=== PATIENT | female | born 1950 | race Caucasian/White ===

== ENCOUNTER 2022-11-09 09:56 | Outpatient (CLI) | payer MEDICARE, OTHER, SELFPAY | END 2022-11-09 09:57 | disposition home or self-care (01) | PROVIDERS: Visit Provider Urology | DX: N20.0 Calculus of kidney (principal) | CPT/HCPCS: 87086 ==

== ENCOUNTER 2023-07-24 11:48 | Outpatient (CLI) | payer MEDICARE, OTHER, SELFPAY ==
[2023-07-24 12:26] LABS: Basophils Percent Auto 0.3 % (0.2-1.2); Eosinophils Absolute Auto 0.1 K/mm3 (0-0.3); Eosinophils Percent Auto 1.3 % (0-4.4); Immature Granulocyte Percent A 1.6 % (0-0.5); Immature Platelet Fraction Pct 23.5 % (0.9-11.2); Lymphocytes Absolute Auto 1.43 K/mm3 (0.9-3.2); Lymphocytes Percent Auto 22.8 % (18.3-44.2); Mean Corpuscular Hemoglobin 28.9 pg (26-34); Mean Corpuscular Volume 96.4 fl (80-100); Mean Platelet Volume 13.8 fl (7.4-10.4); Monocytes Absolute Auto 1.1 K/mm3 (0.1-0.6); Monocytes Percent Auto 16.7 % (2.6-8.5); Neutrophils Absolute Auto 3.6 K/mm3 (1.3-6.7); Neutrophils Percent Auto 57.3 % (45.5-73.1); Platelet Count Result 165 k/mm3 (150-375); Red Blood Count 1.97 M/mm3 (4.2-5.4); Red Cell Distribution Width 17.7 % (11.5-14.5); White Blood Count 6.3 K/mm3 (4.5-10.0)
[2023-07-24 12:29] LABS: Hemoglobin 5.7 g/dL (12.0-15.0)
[2023-07-24 12:38] LABS: Alanine Aminotransferase 37 U/L (6-35); Albumin Level 3.9 g/dL (3.5-5.1); Alkaline Phosphatase 117 U/L (38-126); Anion Gap 7 mmol/L (8-16); Aspartate Amino Transferase 35 U/L (14-36); Bilirubin,Total 0.5 mg/dL (0.2-1.3); Blood Urea Nitrogen 28 mg/dL (7-17); Calcium 9.5 mg/dL (8.4-10.2); Carbon Dioxide 28 mmol/L (22-30); Chloride 107 mmol/L (98-107); Estimated Glomerular Filt Rate 49; Glucose 151 mg/dL (65-110); Potassium 4.2 mmol/L (3.4-5.0); Sodium 142 mmol/L (137-145)
[2023-07-24 12:44] LABS: Anisocytosis 1+ (NORMAL); Hypochromasia 2+ (NORMAL); Ovalocytes 1+ (NORMAL); Platelet Estimate Adequate (Adequate); Schistocytes None Seen (NORMAL)
[2023-07-24 12:45] LABS: Iron 208 ug/dL (37-170)
[2023-07-24 16:25] LABS: Ferritin > 2000.00 ng/mL (11.1-264)
== END 2023-07-24 11:49 | disposition home or self-care (01) ==
DX: D64.9 Anemia, unspecified (principal); D75.81 Myelofibrosis
CPT/HCPCS: 36415; 80053; 82728; 83540; 85025; 85055

== ENCOUNTER 2023-11-28 13:51 | Outpatient (CLI) | payer MEDICARE, OTHER, SELFPAY ==
[2023-11-28 15:07] LABS: Hematocrit 22.5 % (37.0-47.0); Hemoglobin 7.1 g/dL (12.0-15.0); Immature Platelet Fraction Pct 50.1 % (0.9-11.2); Mean Corpuscular HGB Conc 31.6 g/dl (32-36); Mean Corpuscular Hemoglobin 28.9 pg (26-34); Mean Corpuscular Volume 91.5 fl (80-100); Platelet Count Result 103 k/mm3 (150-375); Red Blood Count 2.46 M/mm3 (4.2-5.4); Red Cell Distribution Width 16.2 % (11.5-14.5); White Blood Count 6.9 K/mm3 (4.5-10.0)
[2023-11-28 15:19] LABS: Alanine Aminotransferase 69 U/L (6-35); Albumin Level 3.9 g/dL (3.5-5.1); Alkaline Phosphatase 101 U/L (38-126); Anion Gap 6 mmol/L (4-12); Aspartate Amino Transferase 44 U/L (14-36); Bilirubin,Total 0.6 mg/dL (0.2-1.3); Blood Urea Nitrogen 33 mg/dL (7-17); Calcium 10.3 mg/dL (8.4-10.2); Carbon Dioxide 31 mmol/L (22-30); Chloride 92 mmol/L (98-107); Estimated Glomerular Filt Rate 24; Glucose 183 mg/dL (65-110); Potassium 4.2 mmol/L (3.4-5.0); Sodium 129 mmol/L (137-145)
== END 2023-11-28 13:52 | disposition home or self-care (01) ==
DX: M97.12XD Periprosthetic fracture around internal prosthetic left knee joint, subsequent encounter (principal)
CPT/HCPCS: 36415; 80053; 85027; 85055

== ENCOUNTER 2023-12-24 12:52 | Emergency (ER) | payer MEDICARE, OTHER, SELFPAY ==
[2023-12-24] VITALS (8 sets, daily range): BP systolic 102–163; BP diastolic 59–92; PULSE 81–87; RESP 12–23; TEMP 36.8; O2SAT 98–100
--- NOTE | ~2023-12-24 | CT_ITS ---
EXAMINATION: CT abdomen pelvis w con DATE: 12/24/2023 13:40 INDICATION: Abdominal pain. Constipation. TECHNIQUE: Computed tomography (CT) of the abdomen and pelvis was performed with 100 mL Omnipaque 350 intravenous contrast. Automated exposure control and iterative reconstruction technique were employe d. The dose-length product was 904.13 mGy-cm. COMPARISON: None. FINDINGS: The visualized portions of lung bases demonstrate mild atelectasis. No pleural effusion. Th e heart size is normal. No pericardial effusion. There are cysts in the liver measuring up to 4 mm. T here is mild elevation right hemidiaphragm. The gallbladder is normal. The spleen is small and calcif ied. The pancreas and adrenal glands are normal. There is cortical thinning of the kidneys. There is a 12 mm mass in left kidney measuring soft tissue attenuation. There is a 10 mm cyst in left kidney. There are 6 stones in right kidney measuring up to 7 mm. There are greater than 10 stones in left kid jorge measuring up to 6 mm. Stool distends the rectum. There are no dilated loops of bowel. The appendi x is normal. There are no pathologically enlarged lymph nodes. There is no free intraperitoneal fluid . There is severe osteoarthritis of the hips. There is lumbar dextroscoliosis and severe spondylosis. There is severe thoracic spondylosis. IMPRESSION: 1. Stool distends the rectum. 2. 12 mm left kidney mass which may be a hemorrhagic cyst or less likely a neoplasm. Consider abdomen MRI without and with contrast. Reviewed, dictated and finalized at location A. IMPRESSION: 1. Stool distends the rectum. 2. 12 mm left kidney mass which may be a hemorrhagic cyst or less likely a neop lasm. Consider abdomen MRI without and with contrast.
--- NOTE | 2023-12-24 13:25 | ED.ABDPAIN ---
HPI - Abdominal Pain General Chief Complaint: Abdominal Pain Stated Complaint: constipated Time Seen by Provider: 12/24/23 13:01 History of Present Illness HPI narrative: 73-year-old female present to the emergency department for evaluation of constipation. Patient reports she has not had a bowel movement approximately an 11 days. Patient reports that she did have a femur fracture on October 15. Patient reports that since then she has been intermittently on oxycodone, [place] and tramadol. Patient reports she has not been taking anything to help with her constipation Related Data Allergies Allergy/AdvReac Type Severity Reaction Status Date / Time No Known Allergies Allergy Verified 12/24/23 13:11 Review of Systems Review of Systems: All systems reviewed & are unremarkable except as noted in HPI and below Exam Narrative: APPEARANCE: Well appearing, no pain, no distress, well-nourished. HEAD: normocephalic, atraumatic. EYES: PERRLA/EOMI, conjunctivae clear. NOSE: Normal no drainage EARS:TMS clear with good light reflex. THROAT: Pharynx clear, no exudate. NECK: Supple. No adenopathy, no masses. RESPIRATORY: Airway patent, respirations nonlabored. Clear to auscultation bilaterally, no rales, rhonchi, wheezing. CARDIOVASCULAR: Regular rate and rhythm without murmurs rubs or gallops. ABDOMINAL: Soft, nontender, nondistended, normal bowel sounds MUSCULOSKELETAL: Moves all extremities. Strength/ROM intact, No edema, No calf tenderness. NEURO: Alert. Cranial nerves II through XII intact. Grossly intact SKIN: Warm, dry. Normal Color Course Vital Signs Vital signs: Vital Signs Temperature 98.3 F 12/24/23 13:05 Pulse Rate 81 12/24/23 13:05 Respiratory Rate 14 12/24/23 13:05 Blood Pressure 163/65 H 12/24/23 13:05 Pulse Oximetry 100 12/24/23 13:05 Oxygen Delivery Room Air 12/24/23 13:05 Temperature 98.3 F 12/24/23 13:05 Pulse Rate 84 12/24/23 15:32 Respiratory Rate 19 12/24/23 15:32 Blood Pressure 137/92 H 12/24/23 15:31 Pulse Oximetry 100 12/24/23 15:31 Oxygen Delivery Room Air 12/24/23 13:05 MDM - Abdominal Pain MDM Narrative Medical decision making narrative: 73-year-old female presenting to the emergency department for evaluation of constipation. Patient is afebrile with no leukocytosis and hemoglobin of 7.1. This is similar to the patient's baseline. Patient is seen is also similar to baseline. CT abdomen pelvis showed evidence of rectal distention and constipation. Patient was treated with a soapsuds enema and did pass a significant amount of stool. Patient was updated on the results of her workup and patient was encouraged to increase her MiraLax and lateral fiber intake. Patient was also encouraged of close follow-up with her physicians. Differential Diagnosis Differential diagnosis: Likely abdominal pain, acute appendicitis, constipation, diverticulitis, endometriosis, gastroenteritis and small bowel obstruction Lab Data Attestation: I reviewed the patient's lab results. 12/24/23 13:20 12/24/23 13:30 Labs: Lab Results 12/24/23 12/24/23 Range/Units 13:20 13:30 WBC 5.9 (4.5-10.0) K/mm3 RBC 2.52 L (4.2-5.4) M/mm3 Hgb 7.1 L (12.0-15.0) g/dL Hct 22.7 L (37.0-47.0) % MCV 90.1 (80-100) fl MCH 28.2 (26-34) pg MCHC 31.3 L (32-36) g/dl RDW 15.5 H (11.5-14.5) % Plt Count 138 L (150-375) k/mm3 MPV Not Reportable Immature Gran % (Auto) 0.8 H (0-0.5) % Neut % (Auto) 49.9 (45.5-73.1) % Lymph % (Auto) 23.2 (18.3-44.2) % [facility] % (Auto) 25.9 H (2.6-8.5) % Eos % (Auto) 0.0 (0-4.4) % Baso % (Auto) 0.2 (0.2-1.2) % Lymph # (Auto) 1.37 (0.9-3.2) K/mm3 [facility] # (Auto) 1.5 H (0.1-0.6) K/mm3 Eos # (Auto) 0.0 (0-0.3) K/mm3 Baso # (Auto) 0.0 (0.0-0.1) K/mm3 Abs Immat Gran (auto) 0.05 H (0.00-0.031) K/mm3 Absolute Neuts (auto) 2.9 (1.3-6.7) K/mm3 Absolute Nucleated R
[2023-12-24 13:30] LABS: Basophils Percent Auto 0.2 % (0.2-1.2); Hematocrit 22.7 % (37.0-47.0); Hemoglobin 7.1 g/dL (12.0-15.0); Immature Granulocyte Absolute 0.05 K/mm3 (0.00-0.031); Immature Granulocyte Percent A 0.8 % (0-0.5); Immature Platelet Fraction Pct 43.6 % (0.9-11.2); Lymphocytes Absolute Auto 1.37 K/mm3 (0.9-3.2); Lymphocytes Percent Auto 23.2 % (18.3-44.2); Mean Corpuscular HGB Conc 31.3 g/dl (32-36); Mean Corpuscular Hemoglobin 28.2 pg (26-34); Mean Corpuscular Volume 90.1 fl (80-100); Monocytes Absolute Auto 1.5 K/mm3 (0.1-0.6); Monocytes Percent Auto 25.9 % (2.6-8.5); Neutrophils Absolute Auto 2.9 K/mm3 (1.3-6.7); Neutrophils Percent Auto 49.9 % (45.5-73.1); Platelet Count Result 138 k/mm3 (150-375); Red Blood Count 2.52 M/mm3 (4.2-5.4); Red Cell Distribution Width 15.5 % (11.5-14.5); White Blood Count 5.9 K/mm3 (4.5-10.0)
[2023-12-24 13:32] LABS: Estimated CRCL calculation 48 ml/min; Estimated Glomerular Filt Rate 54
[2023-12-24 13:38] LABS: Lactic Acid Reflex 1.3 mmol/L (0.7-2.0)
[2023-12-24 13:39] LABS: Alanine Aminotransferase 55 U/L (6-35); Albumin Level 3.6 g/dL (3.5-5.1); Alkaline Phosphatase 95 U/L (38-126); Anion Gap 4 mmol/L (4-12); Aspartate Amino Transferase 46 U/L (14-36); Bilirubin,Total 0.7 mg/dL (0.2-1.3); Blood Urea Nitrogen 23 mg/dL (7-17); Calcium 10.1 mg/dL (8.4-10.2); Carbon Dioxide 33 mmol/L (22-30); Chloride 97 mmol/L (98-107); Estimated CRCL calculation 53 ml/min; Estimated Glomerular Filt Rate > 60; Glucose 200 mg/dL (65-110); Potassium 4.3 mmol/L (3.4-5.0); Sodium 134 mmol/L (137-145)
[2023-12-24 13:54] LABS: Large Platelets Present; Platelet Estimate Decreased (Adequate)
[2023-12-24 13:55] LABS: Anisocytosis 1+; Giant Platelets Present; Hypochromasia 1+; Schistocytes None Seen; Target Cells 1+
[2023-12-24] MEDS: ACETAMINOPHEN 500 MG TABLET 1000 MG PO (15:39)
--- NOTE | 2023-12-24 15:47 | PC.NURSE ---
attempted to call sister with update. no answer
--- NOTE | 2023-12-24 16:08 | PC.NURSE ---
1607 Attempted to call pts sister, Makayla, no answer and voicemail was left.
== END 2023-12-24 17:07 | disposition home or self-care (01) ==
PROVIDERS: Emergency Provider Emergency Medicine
DX: K59.00 Constipation, unspecified (principal); N28.89 Other specified disorders of kidney and ureter
CPT/HCPCS: 36415; 74177; 80053; 83605; 85025; 85055; 99284; A9270; Q9967

== ENCOUNTER 2024-02-03 14:37 | Emergency (ER) | payer MEDICARE, OTHER, SELFPAY ==
--- NOTE | ~2024-02-03 | CT_ITS ---
EXAMINATION: CT abdomen pelvis w con DATE: 02/03/2024 19:37 INDICATION: Fall. Constipation. TECHNIQUE: Computed tomography (CT) of the abdomen and pelvis was performed with 100 mL Omnipaque 350 intravenous contrast. Automated exposure control and iterative reconstruction technique were employe d. The dose-length product was 676.84 mGy-cm. COMPARISON: CT abdomen and pelvis 12/24/2023 FINDINGS: The visualized portions of the lung bases demonstrate mild atelectasis. No pleural effusion . The heart size is normal. There are coronary artery calcifications. No pericardial effusion. There are cysts in the liver measuring up to 6 mm. The gallbladder is normal. The spleen is small and calci fied. The pancreas and adrenal glands are normal. There is cortical thinning of the kidneys. There is a 12 mm mass in left kidney measuring soft tissue attenuation. There are approximately 10 stones in right kidney measuring up to 8 mm. There are greater than 10 stones in left kidney measuring up to 6 mm. There are no dilated loops of bowel. The appendix is normal. There are no pathologically enlarged lymph nodes. There is no free intraperitoneal fluid. There is severe thoracic and lumbar spondylosis . Lumbar dextroscoliosis is noted. There is a chronic compression fracture of L1. IMPRESSION: 1. Bilateral nonobstructing kidney stones. 2. 12 mm left kidney mass, which may be a hemorrhagic cyst or less likely a neoplasm. Consider abdome n MRI without and with contrast. Reviewed, dictated and finalized at location E. IMPRESSION: 1. Bilateral nonobstructing kidney stones. 2. 12 mm left kidney mass, which may be a hemorrhagic cyst or less likely a terry plasm. Consider abdomen MRI without and with contrast.
--- NOTE | ~2024-02-03 | CT_ITS ---
EXAMINATION: CT cervical spine wo con DATE: 02/03/2024 19:26 INDICATION: Neck pain. Fall. TECHNIQUE: Computed tomography (CT) of the cervical spine was performed without intravenous contrast. Automated exposure control and iterative reconstruction technique were employed. The dose-length pro duct was 572.32 mGy-cm. COMPARISON: None FINDINGS: There is kyphosis of cervical spine. There is 3 mm anterolisthesis of C4 on C5. Vertebral b cheko heights are normal. There is mildly decreased disc height at C4-C5 and severely decreased disc he ight at C5-C6 and C6-C7. There is severe osteoarthritis of the facet joints at C1-C2. The following d isc levels are specifically discussed: C2-C3: There is mild bilateral uncovertebral joint osteoarthritis. There is mild right and severe lef t facet joint osteoarthritis. There is mild left neural foraminal stenosis. There is mild central can al stenosis. C3-C4: There is mild bilateral uncovertebral joint osteoarthritis. There is moderate right and severe left facet joint osteoarthritis. There is mild left neural foraminal stenosis. There is no central c anal stenosis. C4-C5: There is mild bilateral uncovertebral joint osteoarthritis. There is severe facet joint osteoa rthritis. There is mild left neural foraminal stenosis. There is no central canal stenosis. C5-C6: There is severe bilateral uncovertebral joint osteoarthritis. There is moderate bilateral face t joint osteoarthritis. There is mild bilateral neural foraminal stenosis. There is mild central arcadio l stenosis. C6-C7: There is severe bilateral uncovertebral joint osteoarthritis. There is severe right and mild l eft facet joint osteoarthritis. There is no neural foraminal stenosis. There is mild central canal st enosis. C7-T1: There is no uncovertebral joint osteoarthritis. There is severe bilateral facet joint osteoart hritis. There is mild left neural foraminal stenosis. There is no central canal stenosis. IMPRESSION: 1. No fracture. 2. Severe cervical spondylosis. Reviewed, dictated and finalized at location E.
--- NOTE | ~2024-02-03 | CT_ITS ---
EXAMINATION: CT brain wo con DATE: 02/03/2024 19:25 INDICATION: Neck pain. Fall. TECHNIQUE: Computed tomography (CT) of the head was performed without intravenous contrast. The mA wa s adjusted according to patient size. Iterative reconstruction technique was employed. The dose-lengt h product was 681.00 mGy-cm. COMPARISON: None FINDINGS: There are scattered areas of low attenuation in the cerebral white matter. There is no intr acranial hemorrhage, acute infarction, or abnormal intracranial mass lesion. The ventricles are zane l in size. There is mild mucosal thickening in the paranasal sinuses. The orbits are normal. The mast oid air cells are normal. IMPRESSION: 1. Mild nonspecific cerebral white matter disease, which likely represents chronic small vessel ische elda disease. Reviewed, dictated and finalized at location E. IMPRESSION: 1. Mild nonspecific cerebral white matter disease, which likely represents epic application coordinator philip small vessel ischemic disease.
[2024-02-03 15:28] VITALS: BP 124/68; PULSE 98; RESP 18; TEMP 36.6; O2SAT 98
--- NOTE | 2024-02-03 18:48 | ED.ABDPAIN ---
HPI - Abdominal Pain General Chief Complaint: Abdominal Pain Stated Complaint: fall, constipation Time Seen by Provider: 02/03/24 18:38 Source: patient Mode of arrival: ambulatory Limitations: no limitations History of Present Illness HPI narrative: patient is a 73-year-old female who presents the ED with multiple complaints. Patient reports having posterior and left-sided neck pain after a ground level mechanical fall 2 weeks ago. She is currently residing at [facility] after a femur fracture she sustained in September. She does note occasional issues with her balance due to this. She did hit her head, denied LOC. She has been taking Motrin for her pain which does provide some relief. She is not on any anticoagulation. Neck pain worse with movement. Denies any numbness or tingling in extremities. Patient also reports having constipation. She states she has not had a BM in 14 days. She has been drinking prune juice at home but denies improvement. Reports abdominal bloating, denies significant abdominal pain. Denies nausea, vomiting. Denies fevers. Patient reports history of bone marrow cancer, chronic anemia/iron overload, hx of routine transfusions. Sees Dr. Hermelindo Waller at [facility] for this. Related Data Allergies Allergy/AdvReac Type Severity Reaction Status Date / Time No Known Allergies Allergy Verified 02/03/24 15:36 Review of Systems Review of Systems: CONSTITUTIONAL: Denies fever, chills, or sweats. GASTROINTESTINAL: See HPI. MUSCULOSKELETAL: See HPI. NEUROLOGIC: Denies headache, dizziness, numbness, or weakness. All systems reviewed & are unremarkable except as noted in HPI and below Exam Narrative: GENERAL: Well appearing, well-nourished, non-toxic, in no acute distress. HEAD: Normocephalic, atraumatic. NECK: Discomfort with rotation to L. Neck is supple. Some tenderness throughout lower midline cervical spine, extending into L sided paraspinal musculature, upper trapezius region. No palpable bony deformities. RESPIRATORY: Airway patent, respirations nonlabored. Clear to auscultation bilaterally, no rales, rhonchi, wheezing. CARDIOVASCULAR: Regular rate and rhythm without murmurs, rubs, or gallops. ABDOMINAL: Soft, No significant tenderness throughout abdomen. Nondistended. No rigidity. Normoactive BS. MUSCULOSKELETAL: Moves all extremities. No gross deformities. Sensation intact throughout extremities. No thoracic or lumbar spinal tenderness. SKIN: Warm, dry, normal color. NEURO: A&O X3. Speech clear. Cranial nerves II-XII grossly intact. Steady gait. No ataxic movements. PSYCHIATRIC: Appropriate mood and affect. Normal interaction. Course Vital Signs Vital signs: Vital Signs Temperature 98 F 02/03/24 15:28 Pulse Rate 98 02/03/24 15:28 Respiratory Rate 18 02/03/24 15:28 Blood Pressure 124/68 02/03/24 15:28 Pulse Oximetry 98 02/03/24 15:28 Oxygen Delivery Room Air 02/03/24 15:28 Temperature 98 F 02/03/24 15:28 Pulse Rate 81 02/03/24 19:13 Respiratory Rate 16 02/03/24 19:13 Blood Pressure 148/54 H 02/03/24 19:13 Pulse Oximetry 99 02/03/24 19:13 Oxygen Delivery Room Air 02/03/24 15:28 MDM - Abdominal Pain MDM Narrative Medical decision making narrative: Patient presented to ED with neck pain status post mechanical fall 2 weeks ago, also reporting constipation X 14 days. Vital signs are stable upon arrival. Patient in no acute distress. No evidence of surgical abdomen on abdominal exam. Patient is neurologically intact. No appreciable focal deficits. Suspicious for musculoskeletal etiology. CT brain and cervical spine were without acute traumatic findings. Does show cervical spondylosis. Patient given Tylenol, Toradol, Flexeril in the ED. On re-evaluation, pain is much improved. Consistent with cervical strain, will d/c with muscle relaxers/lidocaine patches. Basic laboratory studies were obtai
[2024-02-03] MEDS: CYCLOBENZAPRINE HCL 5 MG TABLET PO (19:02)
[2024-02-03] MEDS: KETOROLAC 15 MG/ML VIAL (*BKC) IV PUSH (19:02)
[2024-02-03] MEDS: SODIUM CHLORIDE 0.9% IV 1,000 ML 999 ML IV CONT (19:02)
[2024-02-03] MEDS: ACETAMINOPHEN 500 MG TABLET 1000 MG PO (19:03)
[2024-02-03 19:09] LABS: Basophils Percent Auto 0.2 % (0.2-1.2); Hematocrit 22.3 % (37.0-47.0); Immature Granulocyte Percent A 1.7 % (0-0.5); Immature Platelet Fraction Pct 40.9 % (0.9-11.2); Lymphocytes Absolute Auto 1.37 K/mm3 (0.9-3.2); Lymphocytes Percent Auto 23.7 % (18.3-44.2); Mean Corpuscular HGB Conc 31.4 g/dl (32-36); Mean Corpuscular Hemoglobin 28.8 pg (26-34); Mean Corpuscular Volume 91.8 fl (80-100); Monocytes Absolute Auto 1.9 K/mm3 (0.1-0.6); Monocytes Percent Auto 33.2 % (2.6-8.5); Neutrophils Absolute Auto 2.4 K/mm3 (1.3-6.7); Neutrophils Percent Auto 41.2 % (45.5-73.1); Platelet Count Result 141 k/mm3 (150-375); Red Blood Count 2.43 M/mm3 (4.2-5.4); Red Cell Distribution Width 15.9 % (11.5-14.5); White Blood Count 5.8 K/mm3 (4.5-10.0)
[2024-02-03 19:13] VITALS: BP 148/54; PULSE 81; RESP 16; O2SAT 99
[2024-02-03 19:16] LABS: Alanine Aminotransferase 22 U/L (6-35); Albumin Level 3.5 g/dL (3.5-5.1); Alkaline Phosphatase 103 U/L (38-126); Anion Gap 7 mmol/L (4-12); Aspartate Amino Transferase 24 U/L (14-36); Bilirubin,Total 0.6 mg/dL (0.2-1.3); Blood Urea Nitrogen 15 mg/dL (7-17); Calcium 9.4 mg/dL (8.4-10.2); Carbon Dioxide 34 mmol/L (22-30); Chloride 94 mmol/L (98-107); Estimated CRCL calculation 51 ml/min; Estimated Glomerular Filt Rate > 60; Glucose 179 mg/dL (65-110); Lipase 22 U/L (23-300); Potassium 3.6 mmol/L (3.4-5.0); Sodium 135 mmol/L (137-145)
[2024-02-03 19:36] LABS: Large Platelets Present; Platelet Estimate Slightly Decreased (Adequate)
[2024-02-03 19:37] LABS: Anisocytosis 1+; Hypochromasia 1+; Ovalocytes 1+; Schistocytes None Seen
[2024-02-03 19:38] LABS: Target Cells 1+
[2024-02-03] MEDS: polyethylene glycoL 3350 17 GM POWD.PACK PO (21:46)
[2024-02-03] MEDS: BISACODYL 5 MG TABLET EC PO (21:46)
[2024-02-03 21:56] LABS: Appearance Urine Clear (Clear); Bilirubin Urine Negative (Negative); Blood Urine Negative (Negative); Color Urine Yellow (Yellow); Glucose Urine UA Negative (Negative); Ketones Urine Negative (Negative); Leukocyte Esterase Ur Negative LEU/UL (Negative); Nitrate Urine Negative (Negative); Protein Urine Negative (Negative); Specific Grav Ur 1.026 (1.001-1.035); pH Urine 6.5 (5.0-9.0)
[2024-02-03 22:25] LABS: Add Urine Microscopic? NO
== END 2024-02-04 00:38 ==
PROVIDERS: Emergency Provider Physician Assistant
DX: S16.1XXA Strain of muscle, fascia and tendon at neck level, initial encounter (principal); K59.00 Constipation, unspecified; D64.9 Anemia, unspecified; E83.111 Hemochromatosis due to repeated red blood cell transfusions; Z85.830 Personal history of malignant neoplasm of bone; M47.812 Spondylosis without myelopathy or radiculopathy, cervical region; R90.82 White matter disease, unspecified; N20.0 Calculus of kidney; N28.89 Other specified disorders of kidney and ureter; W19.XXXA Unspecified fall, initial encounter
CPT/HCPCS: 36415; 70450; 72125; 74177; 80053; 81003; 83690; 85025; 85055; 96361; 96374; 99284; A9270; J1885; J7030; Q9967

== ENCOUNTER 2024-04-29 08:29 | Emergency (ER) | payer MEDICARE, OTHER, SELFPAY ==
[2024-04-29] VITALS (7 sets, daily range): BP systolic 106–131; BP diastolic 57–96; PULSE 69–89; RESP 16–19; TEMP 36.7; O2SAT 95–100
--- NOTE | ~2024-04-29 | XR_ITS ---
EXAMINATION: XR chest 1V DATE: 04/29/2024 09:27 INDICATION: Fall TECHNIQUE: frontal view of the chest was obtained. COMPARISON: None FINDINGS: The lungs are clear with no focal airspace opacities, pulmonary edema, pleural effusion or pneumothor ax. The cardiomediastinal silhouette is normal. Chronic healed fracture deformity of the posterolater al right eighth rib. Likely prior distal left clavicle resection. There are mild compression fracture s at T12 and L1, the latter which can be seen on CT dated 02/03/2024, the former which appears new sinc e the prior study. IMPRESSION: 1. No acute cardiopulmonary disease. 2. Age-indeterminate T12 compression fracture new since 02/03/2024. Reviewed, dictated and finalized at location A.
--- NOTE | ~2024-04-29 | CT_ITS ---
CT cervical spine wo con Ordering provider: Jez Trujillo MD History: . Fall . Comparison: None. Technique: CT of the cervical spine was performed without contrast. Sagittal and coronal reformatted images were also obtained and reviewed. Automated exposure control and iterative reconstruction lillie hnique were employed. The dose-length product was 502.46 mGy-cm. FINDINGS: VERTEBRAE: Compression fracture of C6 and C7 is noted with kyphosis centered at the level of C5-C6. N o subluxation. The occipital condyles are intact. DISC SPACES: Narrowing of the disc C5-C6 and C6-C7. Multilevel facet joint disease. Multilevel uncove rtebral joint osteoarthritic changes. Osteoarthritic changes at the level of C1-C2 in the right side . Narrowing of the right foramen at the level of C3-C4. PARASPINOUS SOFT TISSUES: Bilateral carotid calcifications. Hypodensities in the left lobe of the thy roid which may be nodules. Ultrasound evaluation advised IMPRESSION: Compression fractures are C6 and C7 which are most likely chronic. Severe kyphosis. Multilevel degenerative disc disease.. Reviewed, dictated and finalized at location A. IMPRESSION: Compression fractures are C6 and C7 which are most likely chronic. Severe kypho sis. Multilevel degenerative disc disease..
--- NOTE | ~2024-04-29 | CT_ITS ---
CT brain wo con Ordering provider: Jez Trujillo MD History: 73 years Female with . Fall . Comparison: February 03, 2024 Technique: CT of the head without contrast. Radiation reduction technique utilized. The dose-length product was 605.33 mGy-cm. FINDINGS: BRAIN PARENCHYMA AND CSF SPACES: Mild leukoaraiosis and diffuse cortical atrophy. Mild atheromatous d isease. No midline shift, mass effect or hemorrhage. The brain parenchyma and CSF spaces are otherwi se normal. VISUALIZED PARANASAL SINUSES: Left sphenoid sinus disease. MASTOIDS: Well aerated. BONES: The bones appear intact. SOFT TISSUES: Visualized nasopharynx is normal. Scalp hematoma in the left occipitoparietal area. Ot herwise, Superficial soft tissues are normal. IMPRESSION: No acute intracranial findings. Reviewed, dictated and finalized at location A.
--- NOTE | ~2024-04-29 | XR_ITS ---
SINGLE AP VIEW PELVIS Ordering provider: Jez Trujillo MD History: . fall, LT HIP PAIN . Comparison: None. FINDINGS: BONES: Left intertrochanteric fracture is noted. HIP JOINT SPACES: Bilateral hip osteoarthritic changes. SACROILIAC JOINT SPACES/LUMBAR SPINE: The sacroiliac joint spaces are normal. Mild degenerative branch es of the visualized lower lumbar spine. PUBIC SYMPHYSIS: Normal. SOFT TISSUES: Normal. IMPRESSION: Left hip intertrochanteric fracture. Reviewed, dictated and finalized at location A.
--- NOTE | 2024-04-29 09:57 | ECG_ITS ---
Test Date: 2024-04-29 10:22:13 Measurements Intervals [place] Rate: 66 P: 0 [place]: 0 QRS: -23 QRSD: 82 T: 9 QT: 291 QTc: 306 Interpretive Statements indeterminate rhyhtm due to poor baseline artifact BORDERLINE LEFT AXIS DEVIATION [QRS AXIS < -20] LOW QRS VOLTAGE IN EXTREMITY LEADS [QRS DEFLECTION < 0.5 mV IN LIMB LEADS] NONSPECIFIC T-WAVE ABNORMALITY No previous ECG available for comparison Electronically Signed On 04-29-2024 12:29:27 CDT by Leeroy Davis M.D.
--- NOTE | 2024-04-29 10:01 | ED.GENADULT ---
HPI - General Adult General Chief complaint: Head Injury Stated complaint: fall History of Present Illness HPI narrative: This is a 73-year-old female [facility]. Patient lost her balance and fell backwards. She landed on her left hip and then fell to the ground striking the back of her head. She denies loss of consciousness. She does not use blood thinners. This time she is complaining pain to the back of head as well as left hip pain. She initially requested transfer to [facility] but was redirected to our hospital by EMS due to concerns for intracranial hemorrhage. Related Data Allergies Allergy/AdvReac Type Severity Reaction Status Date / Time No Known Allergies Allergy Verified 02/03/24 15:36 Exam Narrative: APPEARANCE: No apparent distress. Head: Large hematoma to the posterior scalp with central abrasion. No laceration repair necessary EYES: EOMI, NOSE: Atraumatic NECK: No midline cervical tenderness or pain on active or passive range of motion RESPIRATORY: No increased rate of breathing CARDIOVASCULAR: RRR, ABDOMINAL: Non-distended MUSCULOSKELETAl: Focal exam of the left hip showed pain with internal and external rotation of the hip. Foot is warm with intact pulses. Sensation light touch motor function intact. NEURO: Alert. Cranial nerves 2-12 grossly intact. Sensation light touch, motor function cerebellar function intact for 4/4 extremities. Gait exam was deferred due to left hip pain SKIN:: Warm, dry. Normal color PSYCHIATRIC: Normal affect Course Vital Signs Vital signs: Vital Signs Pulse Rate 70 04/29/24 08:35 Respiratory Rate 18 04/29/24 08:35 Blood Pressure 106/57 L 04/29/24 08:35 Pulse Oximetry 98 04/29/24 08:35 Pulse Rate 70 04/29/24 08:35 Respiratory Rate 18 04/29/24 08:35 Blood Pressure 106/57 L 04/29/24 08:35 Pulse Oximetry 98 04/29/24 08:35 Medical Decision Making MDM Narrative Medical decision making narrative: -Course: 73-year-old female presenting after a ground level fall. CT the head and neck negative for significant injury. Pelvic x-ray showed a left intertrochanteric hip fracture. Patient's orthopedic surgeon is Milton Downing in the [facility] system. Patient is requesting transfer. Patient will be transferred ED to ED. Accepted under Dr. Agosto. -DDX includes but is not limited to: ICH, concussion, pelvic fracture, muscle strain -Independent interpretation of studies: CT head and C-spine negative for acute traumatic injury. X-ray of pelvis shows a left intertrochanteric hip fracture. Chest x-ray showed acute for subacute T12 compression fracture -Discussion of Management/Consultants: Dr. Agosto -Interventions: Dilaudid, normal saline, toradol -Shared decision making / Disposition:t/f Vital Signs Vital Signs: Vital Signs Pulse Rate 70 04/29/24 08:35 Respiratory Rate 18 04/29/24 08:35 Blood Pressure 106/57 L 04/29/24 08:35 Pulse Oximetry 98 04/29/24 08:35 Pulse Rate 70 04/29/24 08:35 Respiratory Rate 18 04/29/24 08:35 Blood Pressure 106/57 L 04/29/24 08:35 Pulse Oximetry 98 04/29/24 08:35 Discharge Plan Discharge Clinical Impression: Hip fracture, Hematoma of scalp Patient Disposition: Acute Care Hospital Condition: Stable Prescriptions: No Action polyethylene glycol 3350 [Miralax] 17 gram powder in packet 17 g PO DAILY Qty: 30 0RF bisacodyl [Dulcolax (bisacodyl)] 5 mg tablet,delayed release (DR/EC) 5 mg PO DAILY Qty: 30 0RF lidocaine 5 % adhesive patch,medicated 1 patch topical DAILY Qty: 15 0RF Rx Instructions: leave on most painful area for up to 12 hrs cyclobenzaprine 5 mg tablet 5 mg PO TID PRN (Reason: muscle spasm) Qty: 10 0RF Follow-up/Referrals: UNKNOWN,DOCTOR [Primary Care Provider] -
[2024-04-29 10:25] LABS: Hematocrit 22.5 % (37.0-47.0); Hemoglobin 7.4 g/dL (12.0-15.0); Immature Platelet Fraction Pct 38.5 % (0.9-11.2); Mean Corpuscular HGB Conc 32.9 g/dl (32-36); Mean Corpuscular Volume 91.1 fl (80-100); Platelet Count Result 53 k/mm3 (150-375); Red Blood Count 2.47 M/mm3 (4.2-5.4); Red Cell Distribution Width 15.1 % (11.5-14.5); White Blood Count 2.4 K/mm3 (4.5-10.0)
[2024-04-29] MEDS: KETOROLAC 15 MG/ML VIAL (*BKC) IV PUSH (10:30)
[2024-04-29] MEDS: HYDROmorphone HCL INJ (*CRX) 1 MG/ML SYR 0.5 MG IV PUSH ×3 (10:31→13:06)
[2024-04-29] MEDS: SODIUM CHLORIDE 0.9% IV 1,000 ML 999 ML IV CONT (10:32)
--- NOTE | 2024-04-29 10:35 | PC.NURSE ---
OMAR - NURSE FROM [facility] UPDATED ON PT'S STATUS.
--- NOTE | 2024-04-29 10:40 | PC.NURSE ---
DR. JIMENEZ ON PHONE SPEAKING W/ PT'S SISTER TO UPDATE ON TRANSFER STATUS PER PT REQUEST.
[2024-04-29 10:47] LABS: Alanine Aminotransferase 19 U/L (6-35); Albumin Level 3.6 g/dL (3.5-5.1); Alkaline Phosphatase 94 U/L (38-126); Anion Gap 5 mmol/L (4-12); Aspartate Amino Transferase 27 U/L (14-36); Bilirubin,Total 0.6 mg/dL (0.2-1.3); Blood Urea Nitrogen 27 mg/dL (7-17); Calcium 9.7 mg/dL (8.4-10.2); Carbon Dioxide 33 mmol/L (22-30); Chloride 98 mmol/L (98-107); Estimated CRCL calculation 44 ml/min; Estimated Glomerular Filt Rate > 60; Glucose 146 mg/dL (65-110); Potassium 4.1 mmol/L (3.4-5.0); Sodium 136 mmol/L (137-145)
[2024-04-29 10:56] LABS: Band Neutrophils Percent 3 % (0-6); Lymphocytes Absolute Manual 1.05 K/mm3 (1.1-4.5); Lymphocytes Percent Manual 44 % (18-44); Monocytes Absolute Manual 0.31 K/mm3 (0.1-0.90); Monocytes Percent Manual 13 % (3-9); Neutrophils Absolute Manual 1.03 K/mm3 (1.7-7.2); Neutrophils Percent Manual 40 % (46-73); Platelet Estimate Decreased (Adequate); Total Cells Counted 100
[2024-04-29 10:57] LABS: Anisocytosis 1+; Basophilic Stippling 1+; Giant Platelets Present; Hypochromasia 2+; Large Platelets Present; Schistocytes None Seen; Stomatocytes 1+; Target Cells 1+
[2024-04-29 12:20] LABS: Add Urine Microscopic? YES; Appearance Urine Clear (Clear); Bacteria Urine None Seen /hpf; Bilirubin Urine Negative (Negative); Blood Urine Negative (Negative); Color Urine Yellow (Yellow); Glucose Urine UA Negative (Negative); Ketones Urine Trace mg/dL (Negative); Leukocyte Esterase Ur Negative LEU/UL (Negative); Need Manual Microscopic Reviewed; Nitrate Urine Negative (Negative); Protein Urine Trace mg/dL (Negative); RBC Urine 0-2 /hpf (0-2); Specific Grav Ur 1.011 (1.001-1.035); Squamous Epithelial Cell Urine None Seen /hpf (Few); Urobilinogen Urine 0.2 mg/dL (<2.0); WBC Urine 0-5 /hpf (0-3); pH Urine 7.5 (5.0-9.0)
== END 2024-04-29 13:12 | disposition short-term general hospital (02) ==
PROVIDERS: Emergency Provider Emergency Medicine
DX: S00.03XA Contusion of scalp, initial encounter (principal); S72.142A Displaced intertrochanteric fracture of left femur, initial encounter for closed fracture; R94.31 Abnormal electrocardiogram [ECG] [EKG]; M40.202 Unspecified kyphosis, cervical region; M50.31 Other cervical disc degeneration, high cervical region; W18.39XA Other fall on same level, initial encounter
CPT/HCPCS: 36415; 70450; 71045; 72125; 72170; 80053; 81001; 85025; 85055; 93005; 96361; 96374; 96375; 96376; 99285; J1171; J1885; J7030